=== PATIENT | female | born 1955 | race Caucasian/White ===

== ENCOUNTER → 2016-10-03 | Outpatient (CLI) | payer MEDICARE, MEDICAID ==
[2016-10-03 15:04] LABS: Urine Bilirubin Negative (Negative); Urine Blood Negative /uL (Negative); Urine Color Yellow (Yellow); Urine Glucose Normal (Normal); Urine Ketone Negative (Negative); Urine Mucus FEW (None Seen); Urine RBC 1 /hpf (0 - 4); Urine Squamous Epithelial Cell FEW /hpf (<5); Urine Urobilinogen Normal (Negative); Urine pH 5.5 (5.0-8.0)
[2016-10-03 15:05] LABS: Urine Nitrite POSITIVE (Negative)
== END | disposition home or self-care (01) ==
LOC: LAB 14:34
PROVIDERS: ATTEND Internal Medicine
DX: Z00.00 Encounter for general adult medical examination without abnormal findings (principal)
CPT/HCPCS: 81001; 87070; 87205

== ENCOUNTER 2016-12-06 11:35 | Emergency (ER) | payer MEDICARE, MEDICAID ==
[~2016-12-06] VITALS: Ht 162.6 cm; Wt 97.5 kg
[2016-12-06 12:02] VITALS: BP 128/55
[2016-12-06] MEDS ORDERED: hydrOXYzine PAMOATE 25 MG CAP PO ONE (12:30)
[2016-12-06 12:40] LABS: Basophils # (auto) 0 uL; Basophils % (auto) 0.4 % (0.0-2.0); Eosinophils # (auto) 0.5 uL; Eosinophils % (auto) 7.9 % (0.0-7.0); Hematocrit 39.4 % (36.0-46.0); Hemoglobin 12.9 g/dL (12.2-16.2); Lymphocytes # (auto) 1.2 uL; Lymphocytes % (auto) 19.1 % (10.0-50.0); Mean Corpuscular Hemoglobin 29.9 pg (28.0-32.0); Mean Corpuscular Hgb Conc. 32.8 g/dL (32.0-36.0); Mean Platelet Volume 9.6 fL (7.4-10.4); Monocytes # (auto) 0.4 uL; Monocytes % (auto) 6.1 % (0.0-12.0); Neutrophils # (auto) 4.2 uL; Neutrophils % (auto) 66.5 % (37.0-80.0); Platelet Count (auto) 200 10^3/uL (140-450); White Blood Cell 6.3 10^3/uL (4.4-10.8)
[2016-12-06 13:08] LABS: Albumin 3.3 g/dL (3.4-5.0); BUN/Creatinine Ratio 22.4; Bilirubin, Total 0.3 mg/dL (0.2-1.0); Calcium 8.4 mg/dL (8.5-10.1); Potassium 4.2 mmol/L (3.5-5.1); Total Protein 6.8 g/dL (6.4-8.2)
== END 2016-12-06 14:01 | disposition home or self-care (01) ==
LOC: ER 11:35
DX: L23.9 Allergic contact dermatitis, unspecified cause (principal); L01.00 Impetigo, unspecified
CPT/HCPCS: 36415; 80053; 85025